=== PATIENT | female | born 1985 | race Caucasian/White ===

== ENCOUNTER 2016-12-23 08:24 | Emergency (ER) | payer OTHER ==
[2016-12-23 08:28] VITALS: TEMP 97.9
[2016-12-23] MEDS ORDERED: DEXAMETHASONE 2 MG TAB PO ONE (08:55)
--- NOTE | 2016-12-23 08:56 | EDPHY ---
H & P Time Seen by Provider: 12/23/16 08:44 HPI/ROS: CHIEF COMPLAINT: Sore throat HISTORY OF PRESENT ILLNESS: History of strep pharyngitis in the past, her daughter was sick with a sore throat last week. She has had symptoms for 4 days associated with pain on swallowing and bilateral ear pressure and headache , subjective fevers. REVIEW OF SYSTEMS: No abdominal pain or vomiting PAST MEDICAL HISTORY: Negative Social history: Daughter with same symptoms General Appearance: Alert and conversant, cooperative. No trismus, pharyngeal erythema and exudate with tonsillar swelling. Uvula midline. Anterior cervical lymphadenopathy. No meningeal signs. Breath sounds equal and no stridor or drooling. Normal tympanic membranes. Normal nasopharynx and no facial swelling or tenderness. Emergency Department course/MDM: Positive strep, but not clinically significantly dehydrated and does not have evidence of Sotero's angina or other deep space head or neck infection. Amoxicillin, oral fluids. [id number] pain medication. Single dose oral dexamethasone discussed and consented. ENT referral this week if not improving Smoking Status: Never smoked Constitutional: Initial Vital Signs Temperature (C) 36.6 C 12/23/16 08:26 Heart Rate 68 12/23/16 08:26 Respiratory Rate 16 12/23/16 08:26 Blood Pressure 104/63 12/23/16 08:26 O2 Sat (%) 96 12/23/16 08:26 O2 Delivery Mode Room Air Allergies/Adverse Reactions: latex [Latex] Allergy (Verified 12/23/16 08:25) Home Medications: Medication Instructions Recorded Amoxicillin Trihydrate 500 mg PO Q8 #30 cap 12/23/16 [Amoxicillin 500mg capsule] MIRENA 12/23/16 MDM/Departure - Depart Disposition: Home, Routine, Self-Care Clinical Impression: Acute pharyngitis, Strep throat Condition: Good Instructions: Strep Throat (ED) Prescriptions: Amoxicillin Trihydrate [Amoxicillin 500mg capsule] 500 mg PO Q8 #30 cap Referrals: Marlon Granados MD [Medical Doctor] - 2-3 days, if not improved
[2016-12-23 10:03] VITALS: BP 110/72; PULSE 78; RESP 18; O2SAT 98
== END 2016-12-23 09:35 | disposition home or self-care (01) ==
DX: J02.0 Streptococcal pharyngitis (principal); Z91.040 Latex allergy status

== ENCOUNTER 2017-01-13 00:41 | Emergency (ER) | payer OTHER ==
[2017-01-13 00:48] VITALS: BP 113/77; PULSE 81; RESP 16; TEMP 98.6; O2SAT 96
[2017-01-13] MEDS ORDERED: TDAP ADULT 0.5 ML INJ (BOOSTRIX) IM ONE (01:17)
--- NOTE | 2017-01-13 01:29 | EDPHY ---
H & P Stated Complaint: says piece of machinery at work hit her under chin - lac, feels dizzy Time Seen by Provider: 01/13/17 01:20 HPI/ROS: Chief Complaint: Chin laceration HPI: 31-year-old female was at work at a [employer] with a lift device when the device slipped and struck her in the chin. She had no loss of consciousness. Did sustain a laceration to her chin. Feels like her dentition is normal. No jaw pain. No nausea or vomiting. She does not recall her last tetanus. ROS: 10 point Review of Systems is negative except as noted in the HPI. PMH: TMJ Family History: [non-contributory] Physical Exam: General: Awake, alert, no acute distress Face: No mandibular tenderness. Normal dentition. She has got a 2 cm horizontal laceration in the submental area of her chin. No deep tissue involvement. Neck: Nontender, full range of motion without pain - Personal History Current Tetanus Diphtheria and Acellular Pertussis (TDAP): No - Medical/Surgical History Hx Asthma: No Hx Chronic Respiratory Disease: No Hx Diabetes: No Hx Cardiac Disease: No Hx Renal Disease: No Hx Cirrhosis: No Hx Alcoholism: No Hx HIV/AIDS: No Hx Splenectomy or Spleen Trauma: No Other PMH: denies - Social History Smoking Status: Former smoker Constitutional: Initial Vital Signs Temperature (C) 37 C 01/13/17 00:44 Heart Rate 81 01/13/17 00:44 Respiratory Rate 16 01/13/17 00:44 Blood Pressure 113/77 01/13/17 00:44 O2 Sat (%) 96 01/13/17 00:44 O2 Delivery Mode Room Air Allergies/Adverse Reactions: banana Allergy (Verified 01/13/17 00:48) latex [Latex] Allergy (Verified 01/13/17 00:48) Home Medications: Medication Instructions Recorded MIRENA 12/23/16 Medical Decision Making Procedures: Procedure: Laceration repair. Verbal consent was obtained from the patient. The 2 cm laceration on the chin was anesthetized in the usual fashion. The wound was irrigated, draped and explored to its base with a gloved finger. There were no deep structures involved. No tendon injury was identified. The wound was repaired with 1, 6-0 Vicryl horizontal deep suture, 5, 6-0 Ethilon simple interrupted sutures. The wound repair was a complicated layered closure of the face. The procedure was performed by myself. - Data Points Medications Given: Discontinued Medications Acetaminophen (Tylenol) 1,000 mg PO EDNOW ONE Stop: 01/13/17 01:33 Last Admin: 01/13/17 01:40 Dose: 1,000 mg Diphtheria/Tetanus/Acell Pertussis (Boostrix) 0.5 ml IM .ONCE ONE Stop: 01/13/17 01:18 Last Admin: 01/13/17 01:39 Dose: 0.5 ml Departure - Departure Disposition: Home, Routine, Self-Care Clinical Impression: Laceration Condition: Good Instructions: Facial Laceration (ED), Care For Your Stitches (ED) Additional Instructions: Sutures need to be removed in 5 days. Return to the emergency department for increasing redness, discharge from the wound, worsening headache, nausea, vomiting, fevers, chills, or any other concerns Referrals: Maria Teresa Stevenson MD [Primary Care Provider] - As per Instructions
[2017-01-13] MEDS ORDERED: ACETAMINOPHEN 500 MG TAB PO ONE (01:32)
== END 2017-01-13 02:16 | disposition home or self-care (01) ==
PROC: 0HQ1XZZ Repair Face Skin, External Approach (ICD-10-PCS; principal; 2017-01-13)
DX: S01.81XA Laceration without foreign body of other part of head, initial encounter (principal); Z87.891 Personal history of nicotine dependence; Z91.040 Latex allergy status; W22.8XXA Striking against or struck by other objects, initial encounter; Y92.69 Other specified industrial and construction area as the place of occurrence of the external cause; Y99.0 Civilian activity done for income or pay